=== PATIENT | female | born 1950 | race Caucasian/White ===

== ENCOUNTER → 2017-06-24 | Day surgery (SDC) | payer MEDICARE ==
[~2017-06-24] MED LIST: ACETAMINOPHEN 1000 MG/100 ML VIAL IV ONE; ACETAMINOPHEN/HYDROcodone 325 MG/5 MG TAB ONE; BACITRACIN IM FOR SOLN 50,000 UNIT VIAL ONE; BUPIVACAINE/EPINEPHRINE 0.5% PF 10 ML VIAL ONE; GENTAMICIN SULFATE 80 MG/2 ML VIAL ONE; KETOROLAC TROMETHAMINE 30 MG/ML (IVP) VIAL ONE; LACTATED RINGER'S 1000 ML INJ 1,000 ML ONE; LIDOCAINE 1%/EPINEPHrine 1:100,000 SOLN 20 ML VIAL ONE; MEPERIDINE HCL 25 MG/ML VIAL ONE; MIDAZOLAM HCL 2 MG/2 ML VIAL ONE; ONDANSETRON HCL 4 MG/2 ML VIAL IV PUSH ONE; PROPOFOL 200 MG/20 ML AMP IV ONE; SODIUM CHLORIDE 0.9% 20 ML VIAL ONE; ceFAZolin INJ 1,000 MG VIAL ONE
--- NOTE | 2017-06-24 13:17 | TN ---
cc: GEORGINA JACKSON M.D. DATE OF SURGERY: 06/24/2017 PREOPERATIVE DIAGNOSIS Bilateral mastectomy with further deformity and asymmetry. POSTOPERATIVE DIAGNOSIS Bilateral mastectomy with further deformity and asymmetry. PROCEDURE 1. Bilateral revision reconstruction including removal and replacement of current implants bilaterally and lateral capsulorrhaphies. 2. Bilateral re-augmentation utilizing Inspira, currently 525 on the right and 490 on the left. 3. Envelope reduction/mastopexy on the left side. 4. Circumvertical mastopexy of the right side. 5. Bilateral micro fat injections, total 180 on the right breast and 120 on the left breast. PROCEDURE IN DETAIL She was properly consented, marked and properly anesthetized. The skin was sterilized with Betadine solution and sterile draping applied. Local anesthetic was infiltrated. Attention was directed to the left breast initially where through the medial latissimus dorsi flap I spared the muscle, entered the capsule and removed the implant. I irrigated with antibiotic solution and performed the lateral and inferior capsulorrhaphies with 0 silk in multiple [id number] fashion. The right breast was approached in a similar fashion, however, the incision was a periareolar inframammary vertical infra-areolar incision. Lateral and inferior capsulorrhaphies were done after the implant was removed and placed in a sterile container. With this I proceeded and performed harvesting of the fat and the first session of fat injections was done in order to bring contour and equality. The implants were introduced. The wounds were closed utilizing multiple 2-0 Monocryl suture layers. The patient was sat up. Sterile tailor tack technique was utilized in order to assess the excess skin and the NAC at 42 mm areolar diameter was set approximately 20 cm from sternal notch which was in close symmetry with the contralateral side. On the left side the latissimus dorsi was advanced to the [place] skin after the fat injections were done. With this I proceeded and de-epithelialized the excess skin and closed the wounds in multiple 2-0 Monocryl suture layers, the dermis and subcu. The NAC on the right side was brought out utilizing a pinwheel 2-0 PTFE suture reinforced with 2-0 Quill. Finally a second round of fat injections were done in order to achieve best contour possible with a grand total of 180 on the right breast and 120 on the left breast mostly throughout the breast in order to achieve best contour and symmetry. The wounds were dressed utilizing Prineo Dermabond, 4x4s and a snug brassiere. Good viability of tissue was noted at the end of the case. The patient was awakened and extubated in the operating room and transferred back to the post-anesthesia care unit in stable condition. No complications were appreciated. Te patient tolerated the procedure fairly well. MD JUAN Min/MASSIEL /12:40 PM /1:00 PM [id number]
== END | disposition home or self-care (01) ==
LOC: ESDC 08:58
PROVIDERS: ATTEND Plastic Surgery
DX: Z90.13 Acquired absence of bilateral breasts and nipples (principal); Z85.3 Personal history of malignant neoplasm of breast
CPT/HCPCS: 00402; 19380; J0131; J0690; J1580; J1885; J2175; J2250; J2405; J3010; J7120